=== PATIENT | female | born 1980 | race Caucasian/White ===

== ENCOUNTER 2018-12-11 11:13 | Emergency (ER) | payer MEDICARE, MEDICAID ==
[2018-12-11 12:21] VITALS: BP 155/98
--- NOTE | 2018-12-11 12:32 | UC ---
Eye Complaint HPI - HPI Summary HPI Summary: 38-year-old woman comes in with a chief complaint of right upper eyelid swelling right eye redness and drainage for several days. She's tried heat and cool compresses. These do help some with the symptoms. No known foreign body. Does not have upper respiratory tract infection symptoms. - History of Current Complaint Chief Complaint: UCEye Stated Complaint: RIGHT EYE CONCERN Time Seen by Provider: 12/11/18 12:15 Hx Last Menstrual Period: ~11/20/18 Pain Intensity: 4 - Allergies/Home Medications Allergies/Adverse Reactions: Allergies Allergy/AdvReac Type Severity Reaction Status Date / Time latex Allergy "precaution Verified 12/11/18 12:14 because I have spina bifida" Penicillins Allergy Rash Verified 12/11/18 12:14 vancomycin Allergy Rash Verified 12/11/18 12:14 codeine AdvReac Hyperactivity Verified 12/11/18 12:14 followed by hypoactivity Home Medications: Home Medications Amitriptyline TAB* [Elavil TAB*] 25 mg PO EVERY OTHER DAY 12/11/18 [History Confirmed 12/11/18] Escitalopram Oxalate [Lexapro 10 mg] 10 mg PO DAILY 12/11/18 [History Confirmed 12/11/18] Ibuprofen TAB* [Advil TAB*] 400 mg PO Q6H PRN 12/11/18 [History Confirmed ] Melatonin 5 mg PO BEDTIME 12/11/18 [History Confirmed 12/11/18] Norethindrone AC-Eth Estradiol [09/28] 1 tab PO DAILY 12/11/18 [History Confirmed 12/11/18] Omeprazole (Nf) [Prilosec (NF)] 40 mg PO DAILY 12/11/18 [History Confirmed 12/11] Oxybutynin Chloride [Oxybutynin Chloride ER] 10 mg PO DAILY 12/11/18 [History Confirmed 12/11/18] traZODone TAB* [Desyrel TAB*] 50 mg PO EVERY OTHER DAY 12/11/18 [History Confirmed 12/11/18] PMH/Surg Hx/FS Hx/Imm Hx Previously Healthy: Yes - Surgical History Surgical History: Yes Surgery Procedure, Year, and Place: FOOT SURGERY AT , BREAST REDUCTION, BACK SURGERY - [facility], [place] - Family History Known Family History: Positive: Non-Contributory - Social History Alcohol Use: None Substance Use Type: None Smoking Status (MU): Former Smoker Type: Cigarettes Amount Used/How Often: LESS THAN 10 CIGS DAILY Length of Time of Smoking/Using Tobacco: <1/2 PPD x 5 Years When Did the Patient Quit Smoking/Using Tobacco: 2010 Review of Systems All Other Systems Reviewed And Are Negative: Yes Constitutional: Positive: Negative Skin: Positive: Negative Eyes: Positive: Drainage, Eye Redness, Other - see hpi ENT: Positive: Negative Respiratory: Positive: Negative Cardiovascular: Positive: Negative Gastrointestinal: Positive: Negative Motor: Positive: Negative Neurovascular: Positive: Negative Musculoskeletal: Positive: Negative Neurological: Positive: Negative Psychological: Positive: Negative Is Patient Immunocompromised?: No Physical Exam Triage Information Reviewed: Yes Appearance: Well-Appearing, No Pain Distress, Well-Nourished Vital Signs: Initial Vital Signs Temp 98 F 12/11/18 12:09 Pulse 90 12/11/18 12:09 Resp 18 12/11/18 12:09 BP 155/98 12/11/18 12:09 Pulse Ox 100 12/11/18 12:09 Vital Signs Reviewed: Yes Eyes: Positive: Conjunctiva Inflamed, Discharge, Other: - PERRLA/EOMI. RT UPPER EYELID SWOLLEN. NO SIGNS OF PERIORBITAL CELLULITIS AT THIS TIME. ENT: Negative: Nasal congestion, Nasal drainage Neck: Positive: Supple Respiratory: Positive: No respiratory distress Neurological: Positive: Alert Psychological: Positive: Age Appropriate Behavior Skin Exam: Normal Eye Complaint Course/Dx - Differential Dx/Diagnosis Provider Diagnosis: Hordeolum of right eye Discharge - Sign-Out/Discharge Documenting (check all that apply): Patient Departure All imaging exams completed and their final reports reviewed: No Studies - Discharge Plan Condition: Stable Disposition: HOME Prescriptions: Tobramycin 0.3% OPHTH.ROSHNI* 1 drop RIGHT EYE Q4H #1 btl Patient Education Materials: Kei (ED) Referrals: Aileen Clinton MD [Primary Care Provider] - Additional Instructions: FOLLOW UP WITH YOUR DOCTOR IF NOT COMPLETELY IMPROVED. GET REEVALUATED SOONER FOR ANY WORSENING OF YOUR CONDITION OR ANY QUESTIONS OR CONCERNS. - Billing Disposition and Condition Condition: STABLE Disposition: Home
== END 2018-12-11 12:36 | disposition home or self-care (01) ==
LOC: UCCORT 11:13
DX: H00.011 Hordeolum externum right upper eyelid (principal); Z87.891 Personal history of nicotine dependence; Z91.040 Latex allergy status; Z88.0 Allergy status to penicillin; Z88.1 Allergy status to other antibiotic agents; Z88.5 Allergy status to narcotic agent
CPT/HCPCS: 99212; G0463

== ENCOUNTER 2019-06-18 10:03 | Emergency (ER) | payer MEDICARE, MEDICAID ==
--- NOTE | 2019-06-18 10:47 | UC ---
Skin Complaint HPI - HPI Summary HPI Summary: 39 yo female presents, accompanied by jelly filter tender, with wound to RIGHT 5th toe. Realtime Captioner tells me that this area has been cracked for about 1.5 weeks, but over the last 2-3 days has noticed some clear drainage. Pt has spina bifida and has no feeling from knees down and has chronic severe edema to both lower legs and feet - pt transfers and uses her foot 5th toe as a pivoting anchor. She denies fever, chills, or hx of MRSA. Has been applying neosporin and dressing the area daily with a dry dressing. - History of Current Complaint Chief Complaint: UCWounds Time Seen by Provider: 06/18/19 10:47 Stated Complaint: WOUND ON TOE Hx Obtained From: Patient Hx Last Menstrual Period: ~11/20/18 Onset/Duration: Gradual Onset Current Severity: None Pain Intensity: 0 - Allergy/Home Medications Allergies/Adverse Reactions: Allergies Allergy/AdvReac Type Severity Reaction Status Date / Time latex Allergy "precaution Verified 06/18/19 10:14 because I have spina bifida" Penicillins Allergy Rash Verified 06/18/19 10:14 vancomycin Allergy Rash Verified 06/18/19 10:14 codeine AdvReac Hyperactivity Verified 06/18/19 10:14 followed by hypoactivity PMH/Surg Hx/FS Hx/Imm Hx - Additional Past Medical History Additional PMH: spina bifida GI/ History: Gastroesophageal Reflux Psychological History: Anxiety, Depression - Surgical History Surgical History: Yes Surgery Procedure, Year, and Place: FOOT SURGERY AT , BREAST REDUCTION, BACK SURGERY - [facility], [place] - Family History Known Family History: Positive: Non-Contributory - Social History Occupation: Disabled Lives: With Family Alcohol Use: None Substance Use Type: None Smoking Status (MU): Former Smoker Type: Cigarettes Amount Used/How Often: LESS THAN 10 CIGS DAILY Length of Time of Smoking/Using Tobacco: <1/2 PPD x 5 Years When Did the Patient Quit Smoking/Using Tobacco: 2010 Review of Systems All Other Systems Reviewed And Are Negative: No Constitutional: Positive: Negative Skin: Positive: Other - Wound right 5th toe Respiratory: Positive: Negative Cardiovascular: Positive: Negative Gastrointestinal: Positive: Negative Neurological: Positive: Negative Psychological: Positive: Negative Physical Exam - Summary Physical Exam Summary: GENERAL: NAD. WDWN. No pain distress. SKIN: RIGHT 5th toe: crease on plantar aspect and medial aspect with cracked skin and scant bleeding. 2-3mm depth. No purulent drainage. Lateral aspect of toe with superficial healing abrasion. No erythema, streaking, or purulent drainage. CHEST: No accessory muscle use. Breathing comfortably and in no distress. CV: Pulses intact. Cap refill <2seconds NEURO: Alert. PSYCH: Age appropriate behavior. Triage Information Reviewed: Yes Vital Signs: Initial Vital Signs Temp 97.9 F 06/18/19 10:11 Pulse 105 06/18/19 10:11 Resp 18 06/18/19 10:11 BP 162/107 06/18/19 10:11 Pulse Ox 100 06/18/19 10:11 Vital Signs Reviewed: Yes Course/Dx - Course Course Of Treatment: Chronic wound to toe. Does not appear infected at this time, but will rx for bactroban ointment and have jelly filter tender continue daily dry dressing changes. Recommend f/u early next week with PCP for a wound check - Diagnoses Provider Diagnosis: Open toe wound Discharge ED - Sign-Out/Discharge Documenting (check all that apply): Patient Departure All imaging exams completed and their final reports reviewed: No Studies - Discharge Plan Condition: Stable Disposition: HOME Prescriptions: Mupirocin 2% OINT* [Bactroban 2 % Oint*] 1 applic TOPICAL DAILY #1 tube Patient Education Materials: Chronic Wound Care (ED), Chronic Wounds (ED) Referrals: Aileen Clinton MD [Primary Care Provider] - Additional Instructions: If you develop a fever, shortness of breath, chest pain, new or worsening symptoms - please call your PCP or go to the ED immediately. Your blood pressure was high at todays visit. Please see your primary provider within 4 weeks for recheck and re-evaluation. 1) Change the dressing daily with a thin layer of the bactroban ointment applied 2) I recommend that you schedule a recheck with your primary doctor for early next week - Billing Disposition and Condition Condition: STABLE Disposition: Home
[2019-06-18] MEDS ORDERED: Mupirocin 2% OINT* TUBE TOPICAL ONE (10:55)
[2019-06-18 11:16] VITALS: BP 150/98
== END 2019-06-18 11:27 | disposition home or self-care (01) ==
LOC: UCEAST 10:03
DX: S91.104A Unspecified open wound of right lesser toe(s) without damage to nail, initial encounter (principal); Z91.040 Latex allergy status; Z88.0 Allergy status to penicillin; Z88.5 Allergy status to narcotic agent; Z88.1 Allergy status to other antibiotic agents; Z87.891 Personal history of nicotine dependence; X58.XXXA Exposure to other specified factors, initial encounter; Y92.9 Unspecified place or not applicable
CPT/HCPCS: 99213; G0463

== ENCOUNTER 2021-09-05 14:55 | Inpatient (IN) ==
[2021-09-05] MEDS ORDERED: Clindamycin 900 MG/D5W BAG 900 MG/50 ML BAG IVPB ONE (15:02)
[2021-09-05 16:20] LABS: ABS Lymphocytes 0.5 10^3/ul (1.0-4.8); ABS Monocytes 0.3 10^3/ul (0-0.8); ABS Neutrophils 11.2 10^3/ul (1.5-7.7); Eosinophil % 0.1 %; Hematocrit 34 % (35-47); Lymphocyte % 4.1 %; Mean Corpuscular HGB Conc 33 g/dL (31-36); Mean Corpuscular Hemoglobin 28 pg (27-31); Mean Corpuscular Volume 86 fL (80-97); Mean Platelet Volume 6.8 fL (7.4-10.4); Nucleated Red Blood Cells % 0.1; Platelet Count 716 10^3/uL (150-450); Red Blood Count 3.91 10^6 /uL (3.70-4.87); Red Cell Distribution Width 19 % (10-15)
[2021-09-05 16:34] LABS: Albumin 3.2 g/dL (3.2-5.2); Albumin/Globulin Ratio 0.5 (1-3); Calcium 9.6 mg/dL (8.6-10.3); Globulin 6.1 g/dL (2-4); Potassium 4.4 mmol/L (3.5-5.0); Total Bilirubin 0.4 mg/dL (0.2-1.0); Total Protein 9.3 g/dL (6.4-8.9); eGFR CKD-EPI 114.9 (>60)
[2021-09-05] MEDS ORDERED: Lactated Ringers 1000 ml BAG 1,000 ML IV SCH (21:00)
[2021-09-05] MEDS ORDERED: Iohexol 300 (CONTRAST) 10 ML SDV IV ONE (22:43)
[2021-09-05] MEDS ORDERED: cefTRIAXone 1 gm/50 mL NS BAG 1 GM/50 ML BAG IVPB SCH (23:00)
[2021-09-06] MEDS ORDERED: Enoxaparin 80 MG/0.8 ML SYR ONE (01:09)
[2021-09-06] MEDS: Enoxaparin 40 MG/0.4 ML SYR SUBCUT SCH ×2 (01:36→23:02)
[2021-09-06 04:48] LABS: C Reactive Protein 206.47 mg/L (<8.01)
[2021-09-06] MEDS ORDERED: Clindamycin 900 MG/D5W BAG IVPB ONE (05:15)
[2021-09-06] MEDS ORDERED: Clindamycin 600 MG/D5W BAG 600 MG/50 ML BAG IV SCH (06:00)
[2021-09-06 07:07] LABS: Hematocrit 23 % (35-47); Hemoglobin 7.7 g/dL (12.0-16.0); Mean Corpuscular HGB Conc 33 g/dL (31-36); Mean Corpuscular Hemoglobin 28 pg (27-31); Mean Corpuscular Volume 84 fL (80-97); Mean Platelet Volume 6.6 fL (7.4-10.4); Platelet Count 487 10^3/uL (150-450); Red Blood Count 2.75 10^6 /uL (3.70-4.87); Red Cell Distribution Width 18 % (10-15); White Blood Count 7.6 10^3/uL (3.5-10.8)
[2021-09-06 07:21] LABS: Calcium 8.2 mg/dL (8.6-10.3); Potassium 4.6 mmol/L (3.5-5.0); eGFR CKD-EPI 118.2 (>60)
[2021-09-06 09:11] LABS: Hematocrit 25 % (35-47); Hemoglobin 8.1 g/dL (12.0-16.0)
[2021-09-06] MEDS ORDERED: Famotidine IV 10 MG/ML 2 ml VIAL (20 mg) IV SLOW PU ONE (12:00)
[2021-09-06] MEDS: ETHINYL ESTRADIOL PO SCH (13:44)
[2021-09-06] MEDS: NORETHINDRONE ACETATE PO SCH (13:44)
[2021-09-06] MEDS ORDERED: Clindamycin 900 MG/D5W BAG 900 MG/50 ML BAG IVPB SCH (14:00)
[2021-09-06] MEDS: Clindamycin 600 MG/D5W BAG 600 MG/50 ML BAG IV SCH ×2 (14:30→23:03)
[2021-09-06] MEDS ORDERED: Magnesium Hydroxide LIQ 30 ML UDC PO PRN (19:34)
[2021-09-06] MEDS: Senna TAB 8.6 mg TAB PO PRN (22:31)
[2021-09-07] MEDS: Clindamycin 600 MG/D5W BAG 600 MG/50 ML BAG IV SCH ×4 (05:15→22:24)
[2021-09-07 06:43] LABS: ABS Basophils 0.1 10^3/ul (0-0.2); ABS Lymphocytes 0.6 10^3/ul (1.0-4.8); ABS Monocytes 0.3 10^3/ul (0-0.8); ABS Neutrophils 4.1 10^3/ul (1.5-7.7); Eosinophil % 0.9 %; Hematocrit 22 % (35-47); Hemoglobin 7.3 g/dL (12.0-16.0); Lymphocyte % 12.1 %; Mean Corpuscular HGB Conc 33 g/dL (31-36); Mean Corpuscular Hemoglobin 28 pg (27-31); Mean Corpuscular Volume 86 fL (80-97); Mean Platelet Volume 6.3 fL (7.4-10.4); Nucleated Red Blood Cells % 0.1; Platelet Count 443 10^3/uL (150-450); Red Cell Distribution Width 19 % (10-15); White Blood Count 5.2 10^3/uL (3.5-10.8)
[2021-09-07 07:04] LABS: C Reactive Protein 150.1 mg/L (<8.01); Calcium 8.2 mg/dL (8.6-10.3); Potassium 4.4 mmol/L (3.5-5.0); eGFR CKD-EPI 121.5 (>60)
[2021-09-07] MEDS: NORETHINDRONE ACETATE PO SCH (10:08)
[2021-09-07] MEDS: ETHINYL ESTRADIOL PO SCH (10:08)
[2021-09-07] MEDS ORDERED: COVID-19 VACCINE, MRNA(MODERNA)/PF 100 MCG/0.5 ML IM ONE (15:00)
[2021-09-07] MEDS ORDERED: Flu vaccine *QUAD* 2021-22* 0.5 ML SYRINGE IM ONE (15:00)
[2021-09-07] MEDS: Cefepime 2 GM in Dextrose 2 GM/50 ML BAG IV SCH (18:18)
[2021-09-07] MEDS: Senna TAB 8.6 mg TAB PO PRN (20:07)
[2021-09-07] MEDS: Enoxaparin 40 MG/0.4 ML SYR SUBCUT SCH (20:08)
[2021-09-08] MEDS: Cefepime 2 GM in Dextrose 2 GM/50 ML BAG IV SCH ×3 (02:20→18:30)
[2021-09-08 06:06] LABS: ABS Eosinophils 0.1 10^3/ul (0-0.6); ABS Lymphocytes 0.8 10^3/ul (1.0-4.8); ABS Monocytes 0.3 10^3/ul (0-0.8); Eosinophil % 2.3 %; Hematocrit 22 % (35-47); Hemoglobin 7.1 g/dL (12.0-16.0); Lymphocyte % 14.3 %; Mean Corpuscular HGB Conc 33 g/dL (31-36); Mean Corpuscular Hemoglobin 28 pg (27-31); Mean Corpuscular Volume 86 fL (80-97); Mean Platelet Volume 6.2 fL (7.4-10.4); Nucleated Red Blood Cells % 0.2; Platelet Count 458 10^3/uL (150-450); Red Blood Count 2.51 10^6 /uL (3.70-4.87); Red Cell Distribution Width 18 % (10-15); White Blood Count 5.3 10^3/uL (3.5-10.8)
[2021-09-08] MEDS: Clindamycin 600 MG/D5W BAG 600 MG/50 ML BAG IV SCH ×3 (06:17→21:37)
[2021-09-08 08:24] LABS: % Iron Saturation 46 % (14 - 50); Total Iron Binding Capacity 181 mcg/dL (250 - 400)
[2021-09-08] MEDS: NORETHINDRONE ACETATE PO SCH (12:43)
[2021-09-08] MEDS: ETHINYL ESTRADIOL PO SCH (12:43)
[2021-09-08] MEDS: Enoxaparin 40 MG/0.4 ML SYR SUBCUT SCH (20:23)
[2021-09-08] MEDS: Senna TAB 8.6 mg TAB PO PRN (20:23)
[2021-09-09] MEDS: Cefepime 2 GM in Dextrose 2 GM/50 ML BAG IV SCH ×3 (02:23→18:49)
[2021-09-09 05:49] LABS: ABS Basophils 0.1 10^3/ul (0-0.2); ABS Eosinophils 0.2 10^3/ul (0-0.6); ABS Lymphocytes 0.7 10^3/ul (1.0-4.8); ABS Monocytes 0.3 10^3/ul (0-0.8); ABS Neutrophils 3.3 10^3/ul (1.5-7.7); Eosinophil % 3.4 %; Hematocrit 23 % (35-47); Hemoglobin 7.4 g/dL (12.0-16.0); Lymphocyte % 15.5 %; Mean Corpuscular HGB Conc 33 g/dL (31-36); Mean Corpuscular Hemoglobin 29 pg (27-31); Mean Corpuscular Volume 88 fL (80-97); Mean Platelet Volume 6.3 fL (7.4-10.4); Nucleated Red Blood Cells % 0.5; Platelet Count 444 10^3/uL (150-450); Red Blood Count 2.57 10^6 /uL (3.70-4.87); Red Cell Distribution Width 19 % (10-15); White Blood Count 4.6 10^3/uL (3.5-10.8)
[2021-09-09] MEDS: Clindamycin 600 MG/D5W BAG 600 MG/50 ML BAG IV SCH ×3 (06:21→20:48)
[2021-09-09 08:57] LABS: Folate 6.24 ng/mL (5.90-24.80)
[2021-09-09] MEDS: ETHINYL ESTRADIOL PO SCH (11:26)
[2021-09-09] MEDS: NORETHINDRONE ACETATE PO SCH (11:26)
[2021-09-09 12:09] LABS: Corrected Retic Count 1.3 % (0.5-1.5); Hematocrit for Retic CNT 23 % (35-47); Immature Retic Fraction 0.56; RBC Retic Count 2.58 10^6/uL (3.70-4.87)
[2021-09-09] MEDS ORDERED: Cyanocobalamin INJ 1,000 MCG/ML VIAL 1 ML VIAL IM ONE (19:08)
[2021-09-09] MEDS: Enoxaparin 40 MG/0.4 ML SYR SUBCUT SCH (20:48)
[2021-09-10] MEDS: Cefepime 2 GM in Dextrose 2 GM/50 ML BAG IV SCH ×2 (02:45→10:40)
[2021-09-10] MEDS: Clindamycin 600 MG/D5W BAG 600 MG/50 ML BAG IV SCH (06:27)
[2021-09-10] MEDS: NORETHINDRONE ACETATE PO SCH (08:21)
[2021-09-10] MEDS: ETHINYL ESTRADIOL PO SCH (08:21)
[2021-09-10] MEDS: Enoxaparin 40 MG/0.4 ML SYR SUBCUT SCH (20:37)
[2021-09-11 07:33] LABS: Hematocrit 23 % (35-47); Hemoglobin 7.3 g/dL (12.0-16.0); Mean Corpuscular HGB Conc 33 g/dL (31-36); Mean Corpuscular Hemoglobin 28 pg (27-31); Mean Corpuscular Volume 87 fL (80-97); Mean Platelet Volume 6.1 fL (7.4-10.4); Platelet Count 532 10^3/uL (150-450); Red Blood Count 2.58 10^6 /uL (3.70-4.87); Red Cell Distribution Width 20 % (10-15); White Blood Count 5.1 10^3/uL (3.5-10.8)
[2021-09-11 07:58] LABS: Anisocytosis 1+
[2021-09-11 07:59] LABS: Polychromasia 1+
[2021-09-11 08:00] LABS: ABS Eosinophils 0.2 10^3/ul (0-0.6); ABS Lymphocytes 0.9 10^3/ul (1.0-4.8); ABS Monocytes 0.4 10^3/ul (0-0.8); ABS Neutrophils 3.6 10^3/ul (1.5-7.7); Eosinophil % 3.7 %; Lymphocyte % 17.1 %; Nucleated Red Blood Cells % 0.7
[2021-09-11] MEDS: ETHINYL ESTRADIOL PO SCH (08:11)
[2021-09-11] MEDS: NORETHINDRONE ACETATE PO SCH (08:11)
[2021-09-11] MEDS: Enoxaparin 40 MG/0.4 ML SYR SUBCUT SCH (21:15)
[2021-09-12] MEDS: Nystatin TOP POWDER 15 GM BTL TOPICAL SCH ×4 (01:48→20:09)
[2021-09-12] MEDS: NORETHINDRONE ACETATE PO SCH (10:04)
[2021-09-12] MEDS: ETHINYL ESTRADIOL PO SCH (10:04)
[2021-09-12] MEDS: Enoxaparin 40 MG/0.4 ML SYR SUBCUT SCH (20:08)
[2021-09-13] MEDS: Nystatin TOP POWDER 15 GM BTL TOPICAL SCH ×3 (09:57→21:03)
[2021-09-13] MEDS: NORETHINDRONE ACETATE PO SCH (09:57)
[2021-09-13] MEDS: ETHINYL ESTRADIOL PO SCH (09:57)
[2021-09-13 15:41] LABS: Rapid COVID-19 Molecular Undetected (Undetected)
[2021-09-13] MEDS: Enoxaparin 40 MG/0.4 ML SYR SUBCUT SCH (21:01)
[2021-09-14 03:43] VITALS: BP 113/53
[2021-09-14] MEDS: Nystatin TOP POWDER 15 GM BTL TOPICAL SCH (09:03)
[2021-09-14] MEDS: NORETHINDRONE ACETATE PO SCH (09:07)
[2021-09-14] MEDS: ETHINYL ESTRADIOL PO SCH (09:07)
== END 2021-09-14 10:37 | DRG 603 ==
LOC: ED 14:55 → EDHOLD 20:13 → SUATTDRO 20:13 → MEDTELE 09-06 10:31
PROVIDERS: ADMIT Internal Medicine; ATTEND Student in an Organized Health Care Education/Training Program